=== PATIENT | female | born 1930 | race Asian ===

== ENCOUNTER → 2017-10-14 | Outpatient (CLI) | payer MEDICARE, OTHER ==
[~2017-10-14] MED LIST: ALLO100T PO; AMLO-511 PO; ASPI-556 PO; CALC-26 PO; COLC0.6T67 PO; DSS100 PO; GUAI10 PO; GUAI100S35 PO; HYDR-4061 PO; LEVO2.5S4 PO; LEVO250T2 PO; OMEP20 PO; OSEL75 PO; SIMV-260 PO
== END | disposition home or self-care (01) ==
LOC: RADPV 08:52
PROVIDERS: ATTEND Internal Medicine
DX: R91.8 Other nonspecific abnormal finding of lung field (principal); I70.0 Atherosclerosis of aorta; J18.9 Pneumonia, unspecified organism
CPT/HCPCS: 71046